=== PATIENT | female | born 1980 | race Caucasian/White ===

== ENCOUNTER 2021-05-14 08:16 | Outpatient (RCR) | payer OTHER ==
[~2021-05-14 08:16] MED LIST: BCP; ESCI20TA2 PO; HYOS0.1216 PO; ONDA4TAB11 PO
== END 2021-05-18 | disposition home or self-care (01) ==
DX: M54.9 Dorsalgia, unspecified (principal)

== ENCOUNTER 2021-06-11 14:17 | Outpatient (RCR) | payer OTHER | END 2021-06-18 | disposition home or self-care (01) | DX: M54.9 Dorsalgia, unspecified (principal) ==

== ENCOUNTER 2021-07-11 08:23 | Outpatient (RCR) | payer OTHER | END 2021-07-16 | disposition home or self-care (01) | DX: M54.9 Dorsalgia, unspecified (principal) ==

== ENCOUNTER → 2022-07-16 | Outpatient (RCR) | payer OTHER | END | disposition home or self-care (01) | DX: M54.9 Dorsalgia, unspecified (principal) ==